=== PATIENT | male | born 1960 | race Hispanic/Latino ===

== ENCOUNTER 2023-01-12 13:00 | Observation (INO) | payer BC ==
[~2023-01-12] VITALS: Ht 180.3 cm; Wt 112.0 kg
[2023-01-12 11:38] LABS: CREATININE 0.8 mg/dL (0.5-1.5); POTASSIUM 4.8 mmol/L (3.5-5.1)
[2023-01-12 11:50] VITALS: BP 183/83; PULSE 61; RESP 17
[2023-01-12 12:07] LABS: BASOPHILS # (AUTO) 0.06 K/uL (0.00-0.20); BASOPHILS % (AUTO) 0.8 % (0.0-5.0); EOSINOPHILS # (AUTO) 0.08 K/uL (0.00-0.70); HEMATOCRIT 42.6 % (42-54); IMMATURE GRANULOCYTE ABSOLUTE 0.03 K/uL (0-1); LYMPHOCYTES % (AUTO) 24.8 % (21.0-51.0); MEAN CORPUSCULAR HEMOGLOBIN 30.6 pg (27.0-33.0); MEAN CORPUSCULAR HGB CONC 33.1 g/dL (32.0-36.0); MEAN CORPUSCULAR VOLUME 92.4 fL (79-99); MONOCYTES # (AUTO) 0.8 K/uL (0.1-1.0); MONOCYTES % (AUTO) 9.5 % (3.0-13.0); NEUTROPHILS % (AUTO) 63.5 % (40.0-77.0); PLATELET COUNT (AUTO) 188 K/uL (130-400); RED BLOOD CELL COUNT(AUTO) 4.61 MIL/uL (4.50-6.20); WHITE BLOOD COUNT (AUTO) 7.9 K/uL (4.8-10.8)
[~2023-01-12 13:00] MED LIST: CLON0.1T2 PO; CLON1PAT13 TD; HYDR200T75 PO; LABE200T7 PO; NAPR-1023 PO; SULF500T PO; VITAMIN D PO
[2023-01-14] VITALS (32 sets, daily range): BP systolic 129–179; BP diastolic 74–101; PULSE 59–91; RESP 12–20; O2SAT 95
[2023-01-14] MEDS ORDERED: CEFAZOLIN SODIUM 2 GM VIAL ONE (06:13)
[2023-01-14] MEDS ORDERED: LACTATED RINGERS 1000ML 1,000 ML IV ONE (06:13)
[2023-01-14] MEDS ORDERED: SUCCINYLCHOLINE CHLORIDE 20 MG/ML 10 ML VIAL ONE (07:01)
[2023-01-14] MEDS ORDERED: LIDOCAINE PF 100MG/5ML (2%) SYRINGE 5ML ONE (07:01)
[2023-01-14] MEDS ORDERED: DEXAMETHASONE SOD PHOSPHATE 10MG/ML 1ML VIAL ONE ×2 (07:02→07:06)
[2023-01-14] MEDS ORDERED: GLYCOPYRROLATE 1 MG/5 ML SYRINGE ONE (07:02)
[2023-01-14] MEDS ORDERED: MIDAZOLAM HCL 1 MG/ML 2ML VIAL ONE (07:02)
[2023-01-14] MEDS ORDERED: MORPHINE PF 100MG/10ML AMP IV ONE (07:03)
[2023-01-14] MEDS ORDERED: PROPOFOL 10 MG/ML 20ML VIAL IV ONE ×2 (07:03→07:04)
[2023-01-14] MEDS ORDERED: ONDANSETRON 4MG INJ ONE ×3 (07:03→13:35)
[2023-01-14] MEDS ORDERED: FENTANYL CITRATE PF 50 MCG/1 ML 2ML VIAL ONE ×3 (07:03→10:59)
[2023-01-14] MEDS ORDERED: THROMBIN-JMI 20000 UNIT KIT TP ONE (07:03)
[2023-01-14] MEDS ORDERED: ROCURONIUM 10MG/1ML SYR 10 MG/ML ML ONE ×2 (07:03→09:27)
[2023-01-14] MEDS ORDERED: NEOSTIGMINE 5MG/5ML SYR IV ONE (07:03)
[2023-01-14] MEDS ORDERED: CEFAZOLIN SODIUM 1 GM VIAL ONE ×2 (07:04→12:04)
[2023-01-14] MEDS ORDERED: ARTIFICIAL TEARS 3.5 GM OINTMENT ONE (08:58)
[2023-01-14] MEDS ORDERED: THROMBIN 20000 UNITS/VIAL POWDER TP ONE (09:00)
[2023-01-14] MEDS ORDERED: CEFAZOLIN SODIUM 2 GM VIAL IVPB ONE ×2 (09:01→12:53)
[2023-01-14] MEDS ORDERED: CEFAZOLIN SODIUM 1 GM VIAL IVPB ONE (09:03)
[2023-01-14] MEDS ORDERED: MORPHINE 10MG VIAL IVP ONE (09:05)
[2023-01-14] MEDS ORDERED: EPHEDRINE SULFATE 50 MG/ML AMPULE ONE (10:42)
[2023-01-14] MEDS: LIDOCAINE 2%-EPI PF 30 ML+BUPIVACAINE/PF 0.25% 30ML /60ML SYR IJ SCH ×4 (13:00→18:05)
[2023-01-14] MEDS ORDERED: MEPERIDINE-PF 25 MG/ML SYG ONE ×3 (13:01→13:53)
[2023-01-14] MEDS ORDERED: NAPROXEN 500 MG TABLET PO PRN (13:30)
[2023-01-14] MEDS ORDERED: PROMETHAZINE HCL 25 MG/ML 1ML AMPULE IM PRN (13:30)
[2023-01-14] MEDS ORDERED: CLONIDINE HCL 0.1 MG TABLET PO PRN (13:30)
[2023-01-14] MEDS ORDERED: CLONIDINE 0.2 MG/ 24 HR PATCH TD SCH (13:30)
[2023-01-14] MEDS ORDERED: 0.9%NACL 10ML VIAL IVP PRN (13:30)
[2023-01-14] MEDS ORDERED: MORPHINE 2 MG SYG IVP PRN (13:30)
[2023-01-14] MEDS ORDERED: HYDRALAZINE 20MG/ML VIAL ONE (13:36)
[2023-01-14] MEDS ORDERED: DEXAMETHASONE SOD PHOSPHATE 4 MG/ML 1ML VIAL ONE (14:54)
[2023-01-14] MEDS: HYDROCODONE/ACETAMINOPHEN 5/325 MG TAB PO PRN ×2 (15:08→18:04)
[2023-01-14] MEDS: DEXAMETHASONE SOD PHOSPHATE 4 MG/ML 1ML VIAL IVP SCH ×3 (15:09→19:55)
[2023-01-14] MEDS: SULFASALAZINE 500 MG TAB.DR PO SCH ×2 (18:04→19:55)
[2023-01-14] MEDS: CEFAZOLIN SODIUM 2 GM VIAL IVPB SCH ×2 (18:05→19:55)
[2023-01-14] MEDS: LACTATED RINGERS 1000ML 1,000 ML IV SCH (18:05)
[2023-01-15] MEDS: DEXAMETHASONE SOD PHOSPHATE 4 MG/ML 1ML VIAL IVP SCH (02:35)
[2023-01-15] MEDS: LACTATED RINGERS 1000ML 1,000 ML IV SCH (02:35)
[2023-01-15 04:00] VITALS: BP 144/74; PULSE 82; RESP 19
[2023-01-15] MEDS: SULFASALAZINE 500 MG TAB.DR PO SCH (05:12)
[2023-01-15 08:00] VITALS: BP 152/75; PULSE 81; RESP 18
[2023-01-15 08:29] VITALS: O2SAT 96
[2023-01-15] MEDS ORDERED: HYDROXYCHLOROQUINE SULFATE 200 MG TAB PO SCH (09:00)
[2023-01-15] MEDS ORDERED: SULFASALAZINE 500 MG PO SCH (09:00)
[2023-01-15] MEDS ORDERED: VITAMIN D2 PO SCH (09:00)
[2023-01-15] MEDS ORDERED: LABETALOL HCL 200 MG TABLET PO SCH (09:00)
== END 2023-01-15 09:50 | disposition home or self-care (01) ==
LOC: EDSTATUS 13:00 → DAHIP 01-14 07:32 → 4AH 01-14 16:45
PROVIDERS: ADMIT Neurological Surgery; ATTEND Neurological Surgery
DX: M48.061 Spinal stenosis, lumbar region without neurogenic claudication (principal); I10 Essential (primary) hypertension; G60.8 Other hereditary and idiopathic neuropathies; I25.10 Atherosclerotic heart disease of native coronary artery without angina pectoris; E66.9 Obesity, unspecified; Z68.37 Body mass index [BMI] 37.0-37.9, adult; Z79.899 Other long term (current) drug therapy; Z98.1 Arthrodesis status
CPT/HCPCS: 80048; 85025; 36415; 71045; 63047; 63048 ×5; 96376 ×2; 96365; 96375; 72020; G0378 ×20; G0379; A4663; J7120 ×2; C1758; J3010 ×3; J0690 ×7; J3490 ×5; J1100 ×5; J2710; J0330; J2001; J0360; J2250; J2704 ×2; J2274; J2405 ×3; J2175 ×3; J2270; A4215; A4223; A4222; A4221; A4600; A4510